=== PATIENT | male | born 1975 | race Caucasian/White ===

== ENCOUNTER 2021-12-19 01:37 | Emergency (ER) | payer MEDICARE, OTHER ==
[~2021-12-19] VITALS: Ht 193 cm; Wt 99.8 kg
--- NOTE | 2021-12-19 01:50 | NUR ---
ABDI PT FROM STREET C/O WANTING TO HURT HIMSELF WITH GUN, LOOKING FOR VOL STELLA ADMIT . PT A/OX3. TOLERATING R/A WELL WITH NO SOB; RESP EVEN AND NON LABORED. PT CHANGED IN GOWN, BELONGINGS IN STORAGE, AND WANDED BY SECURITY. SAFETY MEASURES IN PLACE.
--- NOTE | 2021-12-19 01:55 | NUR ---
URINE COLLECTED AND SENT TO LAB
--- NOTE | 2021-12-19 01:56 | NUR ---
COVID SWAB COLLECTED AND SENT TO LAB
--- NOTE | 2021-12-19 02:27 | NUR ---
[employer] OFFICERS AT BEDSIDE
[2021-12-19 02:44] LABS: BASOPHILS # (AUTO) 0.1 K/uL (0.0-0.2); BASOPHILS % (AUTO) 0.5 % (0.0-2.0); EOSINOPHILS % (AUTO) 0.7 % (0.0-6.0); HEMATOCRIT 51 % (39-51); HEMOGLOBIN 17.5 g/dL (13.5-17.5); LYMPHOCYTES # (AUTO) 1.7 K/uL (0.8-4.8); LYMPHOCYTES % (AUTO) 14.1 % (20.0-44.0); MEAN CORPUSCULAR HGB CONC 35 g/dl (31.0-36.0); MEAN CORPUSCULAR VOLUME 90 fL (80-96); MONOCYTES # (AUTO) 1.1 K/uL (0.1-1.30); MONOCYTES % (AUTO) 9.1 % (2.0-12.0); NEUTROPHILS # (AUTO) 9.1 K/uL (1.8-8.9); NEUTROPHILS % (AUTO) 75.6 % (43.0-81.0); PLATELET COUNT (AUTO) 233 K/uL (150-450); RED BLOOD CELL COUNT(AUTO) 5.63 MIL/uL (4.5-6.0)
[2021-12-19 02:44] LABS: BILIRUBIN,URINE NEGATIVE (NEGATIVE); COLOR,URINE YELLOW (YELLOW); LEUKOCYTE ESTERASE ,URINE NEGATIVE (NEGATIVE); NITRITE, URINE NEGATIVE (NEGATIVE); PROTEIN,URINE NEGATIVE (NEGATIVE); UGLUCOSE NEGATIVE (NEGATIVE); UROBILINOGEN,URINE 0.2 EU/dL (0.2)
[2021-12-19 02:59] LABS: ALANINE AMINOTRANSFERASE 45 U/L (12-78); ALBUMIN 3.9 g/dL (3.4-5.0); ALKALINE PHOSPHATASE 89 U/L (46-116); ASPARTATE AMINOTRANSFERASE 40 U/L (15-37); BILIRUBIN,DIRECT 0.1 mg/dL (0.0-0.2); BILIRUBIN,TOTAL 0.7 mg/dL (0.2-1.0); CALCIUM, SERUM 8.3 mg/dL (8.5-10.1); CARBON DIOXIDE 29 mmol/L (21-32); CHLORIDE 103 mmol/L (98-107); CREATININE 1.1 mg/dL (0.6-1.3); GLUCOSE 122 mg/dL (74-106); POTASSIUM 3.5 mmol/L (3.5-5.1); SODIUM SERUM 139 mmol/L (136-145); TOTAL PROTEIN, SERUM 7.5 g/dL (6.4-8.2); UREA NITROGEN, BLOOD 11 mg/dL (7-18)
[2021-12-19 03:02] LABS: ACETAMINOPHEN 0 ug/ml (10-30); ALCOHOL, BLOOD < 3 mg/dL (0-0)
[2021-12-19 03:18] LABS: BACTERIA,URINE Rare /HPF (None Seen); RBC,URINE 0-2 /HPF (0-2); SQUAMOUS EPITHELIAL CELL,UR Few /HPF (None Seen)
[2021-12-19 03:19] LABS: MUCUS,URINE Few /LPF (None Seen)
--- NOTE | 2021-12-19 04:50 | NUR ---
СЕРГЕЙ FAXED TO [facility].
--- NOTE | 2021-12-19 05:56 | NUR ---
PATIENT ACCEPTED AT [facility] UNDER THE CARE OF DR. MANCERA. CALL [phone] FOR REPORT.
--- NOTE | 2021-12-19 05:58 | NUR ---
REPORT GIVEN TO MICHOACANO RN ELECTRICAL INSTRUMENTATION TECHNICIAN FOR [facility] AT [facility]. PER MICHOACANO, PLEASE SEND PT AT 1000. STILL NEED TO DISCHARGE PTS.
--- NOTE | 2021-12-19 06:01 | NUR ---
TRANSPORT REQUESTED FROM [facility], [facility]
[2021-12-19 08:02] VITALS: BP 135/71
[2021-12-19] MEDS ORDERED: ACETAMINOPHEN 325 MG TABLET ONE (08:26)
[2021-12-19] MEDS ORDERED: ACETAMINOPHEN 325 MG TABLET PO ONE (08:30)
--- NOTE | 2021-12-19 09:28 | NUR ---
patient picked up by private transport going to [facility] in no distress, all belongings sent with patient. In stable condition, ambulatory with steady gait.
== END 2021-12-19 09:28 ==
LOC: ER 01:40
DX: R45.851 Suicidal ideations (principal); Z59.00 Homelessness unspecified; Z20.822 Contact with and (suspected) exposure to COVID-19
CPT/HCPCS: 36415; 80048-TC; 80076-TC; 81001; 85025-TC; 87086-TC; C9803; G0480

== ENCOUNTER 2023-02-03 02:55 | Emergency (ER) | payer MEDICARE, OTHER ==
[~2023-02-03] VITALS: Ht 177.8 cm; Wt 79.4 kg
[2023-02-03 02:55] VITALS: BP 132/89; TEMP 98.1; O2SAT 98
== END 2023-02-03 04:14 | disposition home or self-care (01) ==
LOC: ER 03:03
DX: Z76.5 Malingerer [conscious simulation] (principal); Z59.00 Homelessness unspecified

== ENCOUNTER 2023-12-15 13:32 | Emergency (ER) | payer MEDICARE, OTHER | END 2023-12-15 13:50 | disposition left against medical advice (07) | LOC: ER 13:41 | DX: Z00.00 Encounter for general adult medical examination without abnormal findings (principal); Z53.21 Procedure and treatment not carried out due to patient leaving prior to being seen by health care provider ==

== ENCOUNTER 2024-01-24 16:02 | Emergency (ER) | payer MEDICARE, OTHER ==
[~2024-01-24] VITALS: Ht 195.6 cm; Wt 104.3 kg
[2024-01-24 16:32] VITALS: BP 139/88; TEMP 98.2
[2024-01-24 17:00] VITALS: O2SAT 99
== END 2024-01-24 17:01 | disposition home or self-care (01) ==
LOC: ER 16:02
DX: T73.0XXA Starvation, initial encounter (principal); Z59.00 Homelessness unspecified; X58.XXXA Exposure to other specified factors, initial encounter

== ENCOUNTER 2024-01-25 08:42 | Emergency (ER) | payer MEDICARE, OTHER ==
[~2024-01-25] VITALS: Ht 195.6 cm; Wt 95.3 kg
[2024-01-25 11:07] VITALS: BP 115/67; TEMP 98
== END 2024-01-25 11:07 | disposition home or self-care (01) ==
LOC: ER 09:30
DX: Z00.00 Encounter for general adult medical examination without abnormal findings (principal); Z86.59 Personal history of other mental and behavioral disorders; Z59.00 Homelessness unspecified

== ENCOUNTER 2024-02-06 07:22 | Emergency (ER) | payer MEDICARE, OTHER | END 2024-02-06 08:17 | disposition home or self-care (01) | LOC: ER 07:22 | DX: Z00.00 Encounter for general adult medical examination without abnormal findings (principal); Z53.21 Procedure and treatment not carried out due to patient leaving prior to being seen by health care provider ==

== ENCOUNTER 2024-02-10 20:22 | Emergency (ER) | payer MEDICARE, OTHER | END 2024-02-11 04:57 | disposition left against medical advice (07) | LOC: ER 20:25 | DX: R51.9 Headache, unspecified (principal); Z53.21 Procedure and treatment not carried out due to patient leaving prior to being seen by health care provider ==

== ENCOUNTER 2024-02-11 22:03 | Emergency (ER) | payer MEDICARE, OTHER | END 2024-02-12 | disposition left against medical advice (07) | LOC: ER 22:07 | DX: R51.9 Headache, unspecified (principal); Z53.21 Procedure and treatment not carried out due to patient leaving prior to being seen by health care provider ==

== ENCOUNTER 2024-02-23 18:12 | Emergency (ER) | payer MEDICARE, OTHER ==
[~2024-02-23] VITALS: Ht 182.9 cm; Wt 90.7 kg
[2024-02-23 18:50] VITALS: BP 140/63; TEMP 98.6; O2SAT 98
== END 2024-02-23 20:57 | disposition left against medical advice (07) ==
LOC: ER 18:16
DX: Z13.89 Encounter for screening for other disorder (principal); Z53.21 Procedure and treatment not carried out due to patient leaving prior to being seen by health care provider

== ENCOUNTER 2024-02-27 08:28 | Emergency (ER) | payer MEDICARE, OTHER ==
[~2024-02-27] VITALS: Ht 188 cm; Wt 113.4 kg
[2024-02-27 09:32] VITALS: BP 141/59; TEMP 97.9; O2SAT 99
[2024-02-27] MEDS ORDERED: TERB250T53 PO (09:56)
[2024-02-27] MEDS: TERBINAFINE HCL 250 MG TABLET PO STA (10:08)
== END 2024-02-27 10:43 | disposition home or self-care (01) ==
LOC: ER 08:40
DX: B35.1 Tinea unguium (principal); M79.675 Pain in left toe(s); M79.674 Pain in right toe(s); R26.2 Difficulty in walking, not elsewhere classified; F17.200 Nicotine dependence, unspecified, uncomplicated; Z86.59 Personal history of other mental and behavioral disorders; Z59.00 Homelessness unspecified